=== PATIENT | male | born 1990 | race African-American/Black ===

== ENCOUNTER 2018-03-05 09:37 | Emergency (ER) | payer SELFPAY ==
[~2018-03-05] VITALS: Ht 188 cm; Wt 86.2 kg
[2018-03-05] MEDS ORDERED: LORAZEPAM 1 MG TAB PO ONE (10:00)
--- NOTE | 2018-03-05 10:42 | Diagnostic Imaging Report ---
PROCEDURE: X-RAY CHEST, TWO VIEWS COMPARISON: [facility], DX, CHEST 2 VIEWS, 07/25/2010, 9:13. INDICATIONS: SOB YESTERDAY FINDINGS: LUNGS: There is hyperexpansion of lung weston with flattening of the hemidiaphragms. This can be found in asthma or air-trapping in young individuals. No focal consolidation or nodules. PLEURA: No effusions or pneumothorax. HEART \T\ MEDIASTINUM: The heart is within normal size-limits. BONES \T\ SOFT TISSUES: No acute findings. CONCLUSION: Hyperexpansion of the lung weston. Heriberto Veras D.O. Dictated by: Heriberto Veras D.O. on 03/05/2018 at 10:45 Electronically approved by: Heriberto Veras D.O. on 03/05/2018 at 10:45
[2018-03-05 11:39] VITALS: BP 129/87
== END 2018-03-05 11:39 | disposition home or self-care (01) ==
LOC: ER 09:37
DX: R06.09 Other forms of dyspnea (principal); F41.1 Generalized anxiety disorder; Z87.891 Personal history of nicotine dependence
CPT/HCPCS: 71046; 93005; 99283

== ENCOUNTER 2021-11-03 08:01 | Emergency (ER) | payer BC, OTHER ==
[~2021-11-03] VITALS: Ht 188 cm; Wt 86.2 kg
[2021-11-03] MEDS ORDERED: KETOROLAC TROMETHAMINE 30 MG/ML VIAL IM STA (08:06)
[2021-11-03] MEDS ORDERED: DEXAMETHASONE 4 MG TAB PO STA (08:06)
[2021-11-03] MEDS ORDERED: LIDOCAINE 4% PATCH TP STA (08:06)
[2021-11-03] MEDS ORDERED: LIDOCAINE1 EAC1 EXT (08:08)
[2021-11-03] MEDS ORDERED: CYCLOBENZAPRINE5 MG PO (08:09)
[2021-11-03] MEDS ORDERED: NAPROXEN250 MG PO (08:09)
[2021-11-03] MEDS ORDERED: ACETAMINOPHEN 325 MG TAB PO ONE (08:15)
== END 2021-11-03 09:04 | disposition home or self-care (01) ==
LOC: ER 08:07
DX: R94.4 Abnormal results of kidney function studies (principal); F17.210 Nicotine dependence, cigarettes, uncomplicated
CPT/HCPCS: 99282

== ENCOUNTER 2025-06-14 03:16 | Emergency (ER) | payer SELFPAY ==
[~2025-06-14] VITALS: Ht 188 cm; Wt 78.5 kg
[~2025-06-14 03:16] MED LIST: CYCLOBENZAPRINE5 MG PO; LIDOCAINE1 EAC1 EXT; NAPROXEN250 MG PO
[2025-06-14 03:30] VITALS: PULSE 73; RESP 18; TEMP 98.3
[2025-06-14] MEDS: SODIUM CHLORIDE 0.9% 1000ML 1,000 ML IV ONE (04:39)
[2025-06-14 05:10] VITALS: BP 120/81; PULSE 60; RESP 18; TEMP 98.3; O2SAT 100
== END 2025-06-14 05:10 | disposition home or self-care (01) ==
LOC: FSED 03:53
DX: R55 Syncope and collapse (principal); R42 Dizziness and giddiness; R51.9 Headache, unspecified; W18.39XA Other fall on same level, initial encounter; Y92.89 Other specified places as the place of occurrence of the external cause; N18.9 Chronic kidney disease, unspecified
CPT/HCPCS: 70450; 80053; 80307; 81003; 84484; 85025; 85379; 93005; 99283; J7030